=== PATIENT | male | born 1975 | race Caucasian/White ===

== ENCOUNTER 2018-10-24 07:24 | Emergency (ER) | payer SELFPAY ==
--- NOTE | 2018-10-24 07:46 | ED.PDOC ---
History of Present Illness - General Chief Complaint: General Stated Complaint: Cough, fever, body aches Time Seen by Provider: 10/24/18 07:25 Source: patient Exam Limitations: no limitations - History of Present Illness Initial Comments: Tyler Singletary 43 y/o male came to ER with nasal congestion and non productive cough for 4 days.Has multiple ill contact at work with same symptoms.No feve/chills ,N/V.Has history of HBP Timing/Duration: other - see hpi Severity: moderate Improving Factors: nothing Worsening Factors: nothing Associated Symptoms: cough - non productive Allergies/Adverse Reactions: Allergies NO KNOWN ALLERGY Allergy (Verified 10/24/18 07:39) Home Medications: Ambulatory Orders Amoxicillin [Amoxil] 1,000 mg PO BID 7 Days #30 cap 10/24/18 Review of Systems - Review of Systems Constitutional: States: no symptoms reported EENTM: States: see HPI Respiratory: States: see HPI Cardiology: States: no symptoms reported Gastrointestinal/Abdominal: States: no symptoms reported All other Systems: Reviewed and Negative, No Change from Baseline Past Medical History (General) - Patient Medical History Hx Stroke: No Hx of COPD: No Hx Congestive Heart Failure: No Hx Hypertension: Yes Hx Diabetes: No Hx MRSA: No Surgical History: other - left foot ORIF - Vaccination History Hx Tetanus, Diphtheria Vaccination: No Hx Influenza Vaccination: No Hx Pneumococcal Vaccination: No Immunizations Up to Date: Yes - Social History Hx Tobacco Use: No Hx Alcohol Use: No Hx Substance Use: No Hx Substance Use Treatment: No Hx Depression: No Hx Physical Abuse: No Hx Emotional Abuse: No Hx Suspected Abuse: No - Female History Patient : No Family Medical History - Family History Mother Family History: No Known Living Status: Still Living Hx Family Hypertension: Yes - mom Physical Exam - Physical Exam General Appearance: Alert, Comfortable, No apparent distress Eye Exam: bilateral normal Ears, Nose, Throat: hearing grossly normal, normal ENT inspection, normal pharynx, nasal congestion Neck: non-tender, full range of motion, supple, normal inspection Respiratory: chest non-tender, lungs clear, normal breath sounds, no respiratory distress Cardiovascular/Chest: normal peripheral pulses, regular rate, rhythm, no gallop, no murmur Peripheral Pulses: radial,right: 2+, radial,left: 2+ Gastrointestinal/Abdominal: normal bowel sounds, non tender, soft, no organomegaly Back Exam: normal inspection, no CVA tenderness, no vertebral tenderness Extremity: no pedal edema, no calf tenderness Neurologic: alert, oriented x 3 Skin Exam: normal color, warm/dry Progress - Progress Progress: 10/24/18 07:51 Vital Signs - 8 hr 10/24/18 07:32 Temperature 98.8 F Pulse Rate [ 101 H Left Radial] Respiratory 18 Rate Blood Pressure 153/106 [Left Arm] O2 Sat by Pulse 98 Oximetry - Results/Orders Results/Orders: Flu swab-negative - EKG/XRAY/CT XRAY: chest - no acute process Departure - Departure Clinical Impression: Upper respiratory tract infection Qualifiers: URI type: unspecified URI Qualified Code(s): J06.9 - Acute upper respiratory infection, unspecified Time of Disposition: 08:18 Disposition: Discharge to Home or Self Care Condition: Fair Departure Forms: ED Discharge - Pt. Copy, Patient Portal Self Enrollment Instructions: Viral Upper Respiratory Infection, Adult (DC), Bacterial Upper Respiratory Infection, Adult (DC) Referrals: Chester Cuellar MD [Primary Care Provider] - 1-2 Weeks Prescriptions: Amoxicillin [Amoxil] 1,000 mg PO BID 7 Days #30 cap Home Medications: Ambulatory Orders Amoxicillin [Amoxil] 1,000 mg PO BID 7 Days #30 cap 10/24/18 Additional Instructions: May use over the counter Cough /Cold medicine nightime/daytime relief as take as directed on package;Nasal saline rinse as needed for nasal congestion and drainage available over the counter;Follow up with primary Md 30 Oct 2018 for recheck;May take Tylenol 500 mg one tablet every 6 hours for body discomfort as needed
--- NOTE | 2018-10-24 07:58 | RAD ---
EXAM DESCRIPTION: Chest,1 View CLINICAL HISTORY: 43 years Male, cough COMPARISON: None. TECHNIQUE: AP portable chest. FINDINGS: Heart size is normal with normal pulmonary vascularity. Mildly prominent ascending aorta. Linear scar or discoid atelectasis in the lingula. Otherwise no consolidating infiltrate. No pulmonary mass or worrisome nodule. No pneumothorax or pleural effusion. Bones are unremarkable. IMPRESSION: No acute process is identified in the chest. Electronically signed by: Adalid Puentes MD 10/24/2018 7:56 AM FIRST BEATER
[2018-10-24 08:29] VITALS: BP 136/103; TEMP 98.5; O2SAT 94
== END 2018-10-24 08:29 | disposition home or self-care (01) ==
LOC: ER 07:24
DX: J06.9 Acute upper respiratory infection, unspecified (principal); I10 Essential (primary) hypertension

== ENCOUNTER 2019-08-26 02:27 | Emergency (ER) | payer BC, OTHER ==
[2019-08-26] MEDS ORDERED: IBUPROFEN 200 MG TAB PO ONE (03:09)
--- NOTE | 2019-08-26 04:51 | ED.PDOC ---
History of Present Illness - General Chief Complaint: ENT Problem Time Seen by Provider: 08/26/19 03:09 Source: patient Exam Limitations: no limitations - History of Present Illness Initial Comments: the patient a 44-year-old male presenting to emergency room secondary to cough congestion and a sore throat for 24 hours. He has also had body aches. Mild cough. No shortness of breath. Timing/Duration: 24 hours Severity: moderate Improving Factors: nothing Worsening Factors: nothing Associated Symptoms: cough, fever/chills, headaches, malaise Allergies/Adverse Reactions: Allergies NO KNOWN ALLERGY Allergy (Verified 10/24/18 07:39) Home Medications: Ambulatory Orders Amoxicillin [Amoxil] 1,000 mg PO BID 7 Days #30 cap 10/24/18 Review of Systems - Review of Systems Constitutional: States: chills, fever, malaise EENTM: States: nose congestion, throat pain Respiratory: States: cough Cardiology: States: no symptoms reported Gastrointestinal/Abdominal: States: no symptoms reported Genitourinary: States: no symptoms reported Musculoskeletal: States: no symptoms reported Skin: States: no symptoms reported Neurological: States: headache Endocrine: States: no symptoms reported All other Systems: No Change from Baseline Past Medical History (General) - Patient Medical History Hx Stroke: No Hx of COPD: No Hx Congestive Heart Failure: No Hx Hypertension: Yes Hx Diabetes: No Hx MRSA: No - Vaccination History Hx Tetanus, Diphtheria Vaccination: No Hx Influenza Vaccination: No Hx Pneumococcal Vaccination: No - Social History Hx Tobacco Use: No Hx Alcohol Use: No Hx Substance Use: No Hx Substance Use Treatment: No Hx Depression: No Hx Physical Abuse: No Hx Emotional Abuse: No Hx Suspected Abuse: No - Female History Patient : No Family Medical History - Family History Mother Family History: No Known Living Status: Still Living Hx Family Hypertension: Yes - mom Physical Exam - Physical Exam General Appearance: Alert, Comfortable, No apparent distress Eye Exam: bilateral normal Ears, Nose, Throat: hearing grossly normal, nasal congestion, pharyngeal erythema Neck: full range of motion, supple Respiratory: lungs clear, normal breath sounds, no respiratory distress, no accessory muscle use Cardiovascular/Chest: normal peripheral pulses, regular rate, rhythm, no edema Peripheral Pulses: radial,right: 2+, radial,left: 2+ Gastrointestinal/Abdominal: non tender, soft Rectal Exam: deferred Back Exam: no CVA tenderness, no vertebral tenderness Extremity: normal range of motion, non-tender, normal inspection, no pedal edema, normal capillary refill 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 He is to use Motrin to reduce symptoms along with NyQuil and Chloraseptic as needed. He needs to keep himself well-hydrated. He tested negative for flu and strep here today. He does need to avoid work for the next few days to avoid infecting other people. ER warnings were given. Keep routine follow-up with primary care doctor. clyde shah [id number] Departure - Departure Clinical Impression: Viral upper respiratory illness Disposition: Discharge to Home or Self Care Condition: Fair Departure Forms: ED Discharge - Pt. Copy, Patient Portal Self Enrollment Instructions: Viral Upper Respiratory Infection, Adult (DC) Diet: regular diet Activity: increase activity as tolerated Referrals: Jamison Ornelas MD [Primary Care Provider] - 1-2 Weeks Home Medications: Ambulatory Orders Amoxicillin [Amoxil] 1,000 mg PO BID 7 Days #30 cap 10/24/18 Additional Instructions: the patient is a 44-year-old male presenting to the emergency room secondary to symptoms consistent with a viral upper respiratory tract infection. He is to use Motrin to reduce symptoms along with NyQuil and Chloraseptic as needed. He needs to keep himself well-hydrated. He tested negative for flu and strep here today. He does need to avoid work for the next few days to avoid infecting other people. ER warnings were given. Keep routine follow-up with primary care doctor.
[2019-08-26 06:24] VITALS: BP 145/84; TEMP 98.9; O2SAT 97
== END 2019-08-26 06:00 | disposition home or self-care (01) ==
LOC: ER 02:27
DX: J06.9 Acute upper respiratory infection, unspecified (principal); I10 Essential (primary) hypertension